=== PATIENT | female | born 1950 | race Caucasian/White ===

== ENCOUNTER 2020-06-29 09:23 | Day surgery (SDC) | payer MEDICARE ==
[~2020-06-29] VITALS: Ht 167.6 cm; Wt 75.0 kg
[2020-06-29 09:52] VITALS: BP 154/82
[2020-06-29] MEDS ORDERED: DIPH25CA52 PO (10:38)
[2020-06-29] MEDS ORDERED: ESCI-8 PO (10:39)
[2020-06-29] MEDS ORDERED: LISI10TA27 PO (10:40)
[2020-06-29] MEDS ORDERED: GUAI100L97 PO (10:40)
[2020-06-29] MEDS ORDERED: WARF-55 PO (10:41)
[2020-06-29] MEDS ORDERED: LEVE10006 PO (10:42)
[2020-06-29] MEDS ORDERED: ACET325T55 PO (10:43)
[2020-06-29] MEDS ORDERED: PROP10DR5 OP (10:44)
[2020-06-29] MEDS ORDERED: silver nitrate applicator stick TP ONE (11:00)
== END 2020-06-29 10:43 | disposition home or self-care (01) ==
LOC: GI LAB 09:23
PROVIDERS: ATTEND Internal Medicine Gastroenterology
DX: K94.29 Other complications of gastrostomy (principal); K21.9 Gastro-esophageal reflux disease without esophagitis; Y83.8 Other surgical procedures as the cause of abnormal reaction of the patient, or of later complication, without mention of misadventure at the time of the procedure; Y92.89 Other specified places as the place of occurrence of the external cause
CPT/HCPCS: 17250; G0463; A6449